=== PATIENT | male | born 1970 | race Caucasian/White ===

== ENCOUNTER 2019-06-28 10:39 | Emergency (ER) | payer OTHER ==
[~2019-06-28] VITALS: Ht 162.6 cm; Wt 117.9 kg
[2019-06-28 12:00] LABS: *BLOOD, URINE 3+ (NEGATIVE); *CLARITY,URINE CLOUDY (CLEAR); *COLOR,URINE YELLOW (YELLOW); *KETONES,URINE 1+ (NEGATIVE); *UROBILINOGEN,URINE >=8.0 E.U./dl (NORMAL); LEUKOCYTE ESTERASE ,URINE 1+ (NEGATIVE); NITRITE, URINE NEGATIVE (NEGATIVE); UGLUCOSE TRACE (NEGATIVE)
[2019-06-28 12:35] LABS: *BILIRUBIN,URIN 2+ (NEGATIVE)
[2019-06-28 12:38] LABS: RBC,URINE 50-80 /HPF (0-3)
[2019-06-28 12:39] LABS: BACTERIA,URINE NONE SEEN /HPF (NONE SEEN); SQUAMOUS EPITHELIAL CELL,UR FEW /HPF (NONE SEEN); WBC,URINE TNTC /HPF (0-3)
[2019-06-28] MEDS ORDERED: PHENAZOPYRIDINE HCL 100 MG TABLET PO ONE (12:45)
[2019-06-28] MEDS ORDERED: ACETAMINOPHEN ES 500 MG TABLET PO ONE (12:45)
[2019-06-28] MEDS ORDERED: IV NORMAL SALINE 1000 ML BAG IV ONE (12:45)
[2019-06-28] MEDS ORDERED: ACETAMINOPHEN ES 500 MG TABLET ONE (12:59)
[2019-06-28] MEDS ORDERED: PHENAZOPYRIDINE HCL 100 MG TABLET ONE (13:00)
[2019-06-28 13:28] LABS: BASOPHILS # (AUTO) 0.1 K/uL (0.0-8.0); BASOPHILS % (AUTO) 0.3 % (0.0-2.0); HEMATOCRIT 42.9 % (36.7-47.1); HEMOGLOBIN 14.5 g/dL (12.5-16.3); LYMPHOCYTES # (AUTO) 1.2 K/uL (20.0-40.0); LYMPHOCYTES % (AUTO) 6.6 % (20.5-51.5); MEAN CORPUSCULAR HEMOGLOBIN 30.3 uug (23.8-33.4); MEAN CORPUSCULAR HGB CONC 34 g/dL (32.5-36.3); MEAN CORPUSCULAR VOLUME 89.9 fL (73.0-96.2); MONOCYTES # (AUTO) 1.4 K/uL (2.0-10.0); MONOCYTES % (AUTO) 7.9 % (0.0-11.0); NEUTROPHILS # (AUTO) 14.9 K/uL (1.8-8.9); NEUTROPHILS % (AUTO) 85.2 % (38.5-71.5); PLATELET COUNT (AUTO) 228 K/uL (152-348); RED BLOOD CELL COUNT(AUTO) 4.77 MIL/uL (4.06-5.63); WHITE BLOOD COUNT (AUTO) 17.5 K/uL (3.6-10.2)
[2019-06-28 13:36] LABS: POTASSIUM 3.8 mmol/L (3.5-5.1)
[2019-06-28 13:41] LABS: BILIRUBIN,TOTAL 1.2 mg/dL (0.2-1.0); TOTAL PROTEIN, SERUM 7.9 g/dL (6.4-8.2)
[2019-06-28] MEDS ORDERED: CEFTRIAXONE 1 G in IV DEXTROSE 5% 50 ML IV ONE (13:45)
[2019-06-28] MEDS ORDERED: CEFTRIAXONE /D5W 50ML IVPB **ER PYXIS IV ONE (14:08)
[2019-06-28 15:25] VITALS: BP 152/93
--- NOTE | 2019-06-28 15:25 | NUR ---
Patient discharged to home in stable conditon. Written and verbal after care instructions given. Patient verbalizes understanding of instructions.d/c instruction printed in swedish.
--- NOTE | 2019-06-28 15:32 | NUR ---
20g IV access in LAC removed prior to d/c - inner cannula intact.
--- NOTE | 2019-07-02 09:32 | NUR ---
message left on voicemail for both the patient and his to call us back at the ED. call was placed because the urine culture revealed that the bacteria is resistent to antibiotic prescribed.
== END 2019-06-28 15:32 | disposition home or self-care (01) ==
LOC: ER 10:39
DX: N12 Tubulo-interstitial nephritis, not specified as acute or chronic (principal)
CPT/HCPCS: 36415; 80053; 81000; 81001; 83605; 85025; 87040 ×2; 87077; 87086; 87186; 99283; J0696; A4663; A9150; J7030

== ENCOUNTER 2019-07-02 10:06 | Emergency (ER) | payer OTHER ==
[~2019-07-02] VITALS: Ht 162.6 cm; Wt 117.9 kg
--- NOTE | 2019-07-02 10:21 | NUR ---
@bedside, MSE in progress
[2019-07-02 10:44] LABS: *BILIRUBIN,URIN NEGATIVE (NEGATIVE); *CLARITY,URINE SLIGHTLY CLOUDY (CLEAR); *COLOR,URINE YELLOW (YELLOW); *KETONES,URINE NEGATIVE (NEGATIVE); *UROBILINOGEN,URINE 0.2 E.U./dl (NORMAL); LEUKOCYTE ESTERASE ,URINE NEGATIVE (NEGATIVE); NITRITE, URINE NEGATIVE (NEGATIVE); UGLUCOSE NEGATIVE (NEGATIVE)
[2019-07-02 10:47] LABS: *BLOOD, URINE TRACE (NEGATIVE)
[2019-07-02 10:51] LABS: BACTERIA,URINE FEW /HPF (NONE SEEN); MUCUS,URINE MODERATE /LPF (0-FEW); RBC,URINE 0-3 /HPF (0-3); SQUAMOUS EPITHELIAL CELL,UR MODERATE /HPF (NONE SEEN)
--- NOTE | 2019-07-02 11:17 | NUR ---
Patient discharged to home in stable condition & brisk steady gait. Written and verbal after care instructions given to patient and spouse in [place] with ER registration staff Antonio. Patient and family verbalized understanding of instructions.
== END 2019-07-02 11:20 | disposition home or self-care (01) ==
LOC: ER 10:06
DX: N39.0 Urinary tract infection, site not specified (principal)
CPT/HCPCS: 87086; A4663

== ENCOUNTER 2019-07-16 14:32 | Emergency (ER) | payer OTHER ==
[~2019-07-16] VITALS: Ht 162.6 cm; Wt 113.4 kg
--- NOTE | 2019-07-16 14:45 | NUR ---
PATIENT WAS MSE BY DR HADDAD IN ROOM 04A. PATIENT A & O X4.
[2019-07-16 14:52] VITALS: BP 135/71
--- NOTE | 2019-07-16 14:52 | NUR ---
Patient discharged to home in stable condition. Written and verbal after care instructions given. Patient verbalizes understanding of instructions.
== END 2019-07-16 14:53 | disposition home or self-care (01) ==
LOC: ER 14:32
DX: Z76.0 Encounter for issue of repeat prescription (principal); I10 Essential (primary) hypertension; Z79.899 Other long term (current) drug therapy
CPT/HCPCS: A4663

== ENCOUNTER 2019-07-20 13:23 | Emergency (ER) | payer OTHER ==
[~2019-07-20] VITALS: Ht 162.6 cm; Wt 127.0 kg
[~2019-07-20 13:23] MED LIST: CHOL200078 PO; LISI1TAB32 PO
--- NOTE | 2019-07-20 13:25 | NUR ---
Dr Sandoval at the bedside for MSE.
[2019-07-20 13:50] LABS: *BILIRUBIN,URIN NEGATIVE (NEGATIVE); *BLOOD, URINE NEGATIVE (NEGATIVE); *CLARITY,URINE CLEAR (CLEAR); *COLOR,URINE YELLOW (YELLOW); *KETONES,URINE NEGATIVE (NEGATIVE); *UROBILINOGEN,URINE 0.2 E.U./dl (NORMAL); LEUKOCYTE ESTERASE ,URINE NEGATIVE (NEGATIVE); NITRITE, URINE NEGATIVE (NEGATIVE); UGLUCOSE NEGATIVE (NEGATIVE)
[2019-07-20 13:59] LABS: BASOPHILS % (AUTO) 0.4 % (0.0-2.0); EOSINOPHILS # (AUTO) 0.3 K/uL (0.0-0.7); EOSINOPHILS % (AUTO) 3.4 % (0.0-7.0); HEMATOCRIT 42.4 % (36.7-47.1); HEMOGLOBIN 14.2 g/dL (12.5-16.3); LYMPHOCYTES # (AUTO) 2.3 K/uL (20.0-40.0); LYMPHOCYTES % (AUTO) 27.6 % (20.5-51.5); MEAN CORPUSCULAR HGB CONC 33 g/dL (32.5-36.3); MEAN CORPUSCULAR VOLUME 89.9 fL (73.0-96.2); MONOCYTES # (AUTO) 0.7 K/uL (2.0-10.0); MONOCYTES % (AUTO) 8.1 % (0.0-11.0); NEUTROPHILS % (AUTO) 60.5 % (38.5-71.5); PLATELET COUNT (AUTO) 349 K/uL (152-348); RED BLOOD CELL COUNT(AUTO) 4.71 MIL/uL (4.06-5.63); WHITE BLOOD COUNT (AUTO) 8.3 K/uL (3.6-10.2)
[2019-07-20 14:06] LABS: BILIRUBIN,DIRECT 0.1 mg/dL (0.0-0.2); BILIRUBIN,TOTAL 0.3 mg/dL (0.2-1.0); TOTAL PROTEIN, SERUM 7.3 g/dL (6.4-8.2)
--- NOTE | 2019-07-20 14:45 | NUR ---
Patient discharged to home in stable conditon. Written and verbal after care instructions given. Patient verbalizes understanding of instructions.
[2019-07-20 14:46] VITALS: BP 126/79
== END 2019-07-20 14:47 | disposition home or self-care (01) ==
LOC: ER 13:23
DX: R42 Dizziness and giddiness (principal); Z87.440 Personal history of urinary (tract) infections; E66.9 Obesity, unspecified; Z79.899 Other long term (current) drug therapy
CPT/HCPCS: 36415; 83690; 85025; 87086; A4663

== ENCOUNTER 2019-12-04 12:37 | Emergency (ER) | payer OTHER ==
[~2019-12-04] VITALS: Ht 167.6 cm; Wt 117.9 kg
--- NOTE | 2019-12-04 12:46 | NUR ---
Dr. Rojas at bedside for MSE
[2019-12-04] MEDS ORDERED: KETOROLAC TROMETHAMINE 60 MG INJ IM ONE ×2 (12:57→13:00)
[2019-12-04] MEDS ORDERED: ONDANSETRON 4 MG/2 ML VIAL ONE (12:57)
[2019-12-04] MEDS ORDERED: ONDANSETRON 4 MG/2 ML VIAL IM ONE (13:00)
[2019-12-04 13:04] LABS: *BILIRUBIN,URIN NEGATIVE (NEGATIVE); *CLARITY,URINE CLEAR (CLEAR); *COLOR,URINE YELLOW (YELLOW); *KETONES,URINE NEGATIVE (NEGATIVE); *UROBILINOGEN,URINE 0.2 E.U./dl (NORMAL); LEUKOCYTE ESTERASE ,URINE 1+ (NEGATIVE); NITRITE, URINE NEGATIVE (NEGATIVE); UGLUCOSE NEGATIVE (NEGATIVE)
[2019-12-04 13:07] LABS: *BLOOD, URINE TRACE (NEGATIVE)
--- NOTE | 2019-12-04 13:25 | NUR ---
Patient taken to CT scan in stable condition
--- NOTE | 2019-12-04 13:40 | NUR ---
Patient back from CT scan
--- NOTE | 2019-12-04 14:27 | NUR ---
Patient discharged to home in stable condition. Written and verbal after care instructions given. Patient verbalizes understanding of instructions. Stressed follow up or return to ER for worsening s/s. Patient ambulated with steady gait. NAD noted
[2019-12-04 14:28] VITALS: BP 141/84
[2019-12-04 15:08] LABS: BACTERIA,URINE FEW /HPF (NONE SEEN); RBC,URINE 0-3 /HPF (0-3); SQUAMOUS EPITHELIAL CELL,UR FEW /HPF (NONE SEEN)
== END 2019-12-04 14:27 | disposition home or self-care (01) ==
LOC: ER 12:37
DX: N20.0 Calculus of kidney (principal); E66.9 Obesity, unspecified; Z68.41 Body mass index [BMI] 40.0-44.9, adult; E11.9 Type 2 diabetes mellitus without complications; I10 Essential (primary) hypertension; Z79.899 Other long term (current) drug therapy
CPT/HCPCS: 74176; 81001; 87086; 96372; 99284; J1885; A4663; J2405

== ENCOUNTER 2020-08-31 18:22 | Emergency (ER) | payer OTHER ==
[~2020-08-31] VITALS: Ht 165.1 cm; Wt 113.4 kg
[2020-08-31 20:06] LABS: *BILIRUBIN,URIN NEGATIVE (NEGATIVE); *BLOOD, URINE NEGATIVE (NEGATIVE); *CLARITY,URINE CLEAR (CLEAR); *COLOR,URINE YELLOW (YELLOW); *KETONES,URINE NEGATIVE (NEGATIVE); *UROBILINOGEN,URINE 0.2 E.U./dl (NORMAL); LEUKOCYTE ESTERASE ,URINE TRACE (NEGATIVE); NITRITE, URINE NEGATIVE (NEGATIVE); UGLUCOSE NEGATIVE (NEGATIVE)
[2020-08-31 20:15] LABS: BACTERIA,URINE NONE SEEN /HPF (NONE SEEN); SQUAMOUS EPITHELIAL CELL,UR FEW /HPF (NONE SEEN); WBC,URINE 0-3 /HPF (0-3)
--- NOTE | 2020-08-31 20:32 | NUR ---
Dr. Smith at bedside for MSE
[2020-08-31] MEDS ORDERED: KETOROLAC TROMETHAMINE 60 MG INJ IM ONE ×2 (20:44→20:45)
[2020-08-31 21:36] VITALS: BP 132/85
--- NOTE | 2020-08-31 21:40 | NUR ---
Patient discharged to home in stable condition. Written and verbal after care instructions given. Patient verbalizes understanding of instructions. Stressed follow up or return to ER for worsening s/s. Noted with steady gait
== END 2020-08-31 21:41 | disposition home or self-care (01) ==
LOC: ER 18:23
DX: M54.89 Other dorsalgia (principal); Z87.442 Personal history of urinary calculi; E66.9 Obesity, unspecified; Z68.41 Body mass index [BMI] 40.0-44.9, adult; I10 Essential (primary) hypertension; Z79.899 Other long term (current) drug therapy
CPT/HCPCS: 81001; 96372; 99283; J1885; A4663

== ENCOUNTER 2020-11-18 06:59 | Emergency (ER) | payer OTHER ==
[~2020-11-18] VITALS: Ht 170.2 cm; Wt 117.9 kg
--- NOTE | 2020-11-18 08:11 | NUR ---
Recived report from hand spring former. Gem Rabago,Oriented ,ED MD bedside with annealing torch operator.0802 EKG NSR given to MD. Lab bedside blood drawn. HOB up, appears comfortable.Hx Covid illness since has been vaccinated for Covid.
[2020-11-18 08:14] LABS: HEMATOCRIT 45.6 % (36.7-47.1); MEAN CORPUSCULAR HEMOGLOBIN 30.1 uug (23.8-33.4); MEAN CORPUSCULAR VOLUME 90.2 fL (73.0-96.2); PLATELET COUNT (AUTO) 366 K/uL (152-348)
[2020-11-18 08:17] LABS: POTASSIUM 3.6 mmol/L (3.5-5.1)
[2020-11-18] MEDS ORDERED: PSEU120T57 PO (08:52)
[2020-11-18] MEDS ORDERED: FEXO180T94 PO (08:52)
[2020-11-18] MEDS ORDERED: FLUT16SP16 NS (08:52)
--- NOTE | 2020-11-18 09:22 | NUR ---
Discharged to home,offered staff interpreter declined by patient. Reviewed Covid test pending MD to contact patient with results,contact information correct, continue COVID precautions wear mask ,social distansting,wash hand frequently.
[2020-11-18 09:28] VITALS: BP 135/78
== END 2020-11-18 09:20 | disposition home or self-care (01) ==
LOC: ER 07:01
DX: R42 Dizziness and giddiness (principal); J32.9 Chronic sinusitis, unspecified; E66.9 Obesity, unspecified; Z68.41 Body mass index [BMI] 40.0-44.9, adult; E11.9 Type 2 diabetes mellitus without complications; I10 Essential (primary) hypertension; Z79.899 Other long term (current) drug therapy
CPT/HCPCS: 36415; 71045; 80048; 85025; 93005; 99285; U0003; A4663

== ENCOUNTER 2021-04-25 09:50 | Emergency (ER) | payer OTHER ==
[~2021-04-25] VITALS: Ht 162.6 cm; Wt 113.4 kg
[~2021-04-25 09:50] MED LIST changes: +FLUT16SP16 NS
--- NOTE | 2021-04-25 10:04 | NUR ---
Dr Woodruff at the bedside for MSE.
[2021-04-25] MEDS ORDERED: ACETAMINOPHEN 325 MG TABLET PO ONE (10:15)
[2021-04-25] MEDS ORDERED: ACETAMINOPHEN 325 MG TABLET ONE (10:33)
[2021-04-25 10:50] VITALS: BP 131/95
--- NOTE | 2021-04-25 10:51 | NUR ---
Patient discharged to home in stable condition. Written and verbal after care instructions given. Patient verbalizes understanding of instructions. Stressed follow up or return to ER for worsening s/s.
== END 2021-04-25 10:51 | disposition home or self-care (01) ==
LOC: ER 09:50
DX: M25.561 Pain in right knee (principal); M17.11 Unilateral primary osteoarthritis, right knee; I10 Essential (primary) hypertension; E78.5 Hyperlipidemia, unspecified; E66.9 Obesity, unspecified; Z68.41 Body mass index [BMI] 40.0-44.9, adult; Z79.899 Other long term (current) drug therapy
CPT/HCPCS: 73562; A4663